=== PATIENT | male | born 1945 | race Two or more races ===

== ENCOUNTER 2016-07-11 13:11 | Emergency (ER) | payer MEDICAID ==
[2016-07-11] MEDS ORDERED: IOPAMIDOL 300 (61%) 150 ML VIAL IV ONE (13:12)
[2016-07-11 14:44] LABS: ABSOLUTE NEUTROPHIL COUNT 17.5 K/mm3 (1.8-7.7); BASO % 0.1 % (0.2-1.0); EOS % 0.1 % (0.9-2.9); HEMATOCRIT 20.3 % (32.0-52.0); IMM NEUT # 0.5 K/mm3 (0-0.2); IMM NEUT% 2.3 % (0-1); LYMPH % 4.8 % (15-45); MEAN CELL VOLUME 77.5 fl (80.0-94.0); MEAN CORPUSCULAR HEMOGLOBIN 22.9 pg (27.0-31.0); MEAN CORPUSCULAR HGB CONC 29.6 g/dl (33.0-37.0); MEAN PLATELET VOLUME 9.3 fl (7.4-10.4); MONO # 1.5 (0.0-0.8); MONO % 7.3 % (4-12); NEUT % 85.4 % (43-75); PLATELET COUNT 512 K/mm3 (130-400); RED CELL DISTRIBUTION WIDTH 17.8 % (11.5-14.5)
[2016-07-11 15:27] LABS: ALB/GLOB RATIO 0.6 (>1.0); CALCIUM 7.3 mg/dL (8.6-10.3)
[2016-07-11] MEDS ORDERED: SODIUM CHLORIDE 0.9% 1,000 ML ONE (15:50)
[2016-07-11] MEDS ORDERED: MORPHINE SULFATE 4 MG/ML SYRINGE ONE (15:50)
[2016-07-11] MEDS ORDERED: CLINDAMYCIN 900 MG PREMIX 50 ML IV ONE (15:50)
[2016-07-11 15:55] LABS: ANISOCYTOSIS 2+; BAND 0 % (0-10); BASOPHIL 0 % (0-1); EOSINOPHIL 0 % (1-3); HYPOCHROMIA 2+; LYMPHOCYTE 7 % (15-45); MONOCYTE 4 % (4-12); NEUTROPHILS 89 % (43-75); NUCLEATED RED BLOOD CELL 4 /100 WBC; PLATELET ESTIMATE NORMAL (NORMAL); POIKILOCYTOSIS 2+; SPHEROCYTE 1+; TOTAL CELLS COUNTED 100
[2016-07-11 15:56] LABS: TARGET CELLS 1+
--- NOTE | 2016-07-11 17:28 | CT ---
CHEST W/ CON, ABD/PELVIS W/ CON COMPARISON: CT of the lower extremities. 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 Technique: Intravenous injection 125 mL Isovue 300 and. Using a [employer] Aquilion [address] scanner, images were obtained through the thorax, abdomen, and pelvis. An automated dose reduction technique was used to minimize patient radiation dose. Dose information: CTDIvol (mGy): 6.20 DLP(mGycm): 598.30 FINDINGS (thorax with contrast): Lungs: Normal. Trachea and bronchi: Normal. Heart and vessels: Normal. Mediastinum and nohemi: Normal. Esophagus: Normal. Pleura and pericardium: Normal. Chest wall and bones: Normal. FINDINGS (abdomen and pelvis with contrast): Liver: In the right lobe, there are 2 nonenhancing structures, 12.5 mm and 4.9 mm. Gallbladder: To moderate calcification at the posterior wall the fundus. Bile ducts: Normal. Pancreas: Normal. Spleen: Normal. Adrenal glands: Normal. Kidneys: Simple cysts in the left kidney. Ureters: Normal. Urinary bladder: Normal. Prostate gland and seminal vesicles:: Normal Blood vessels: Normal. Lymph nodes: Normal. Stomach: Normal. Duodenum: Normal. Small intestine: Normal. Appendix: Normal. Colon: Normal. Abdominal wall and supporting musculature: Normal. Bones: Degenerative changes in spine. No lytic or blastic lesions. IMPRESSION: 1. No evidence of metastatic disease to the chest, abdomen, and pelvis. 2. The liver, there are 2 cysts in the right lobe. In the left kidney, there are several cysts. The report was sent to the emergency department electronic medical record system 07/11/2016 at 17:29
--- NOTE | 2016-07-11 17:30 | CT ---
LOWER EXT W/ CON LT COMPARISON: None. HISTORY: Large mass of the proximal left leg TECHNIQUE: Intravenous injection 125 mL of Isovue-300. Images of the the lower extremities from the hips to the distal femur. were obtained with a [employer] Aquilion [address] scanner. No intravenous contrast. An automated dose reduction technique was used to minimize patient radiation dose. Dose information: CTDIvol (mGy): 6.20 DLP(mGycm): 598.30 FINDINGS: Bones: Normal Joints: Normal Soft tissues: In the proximal medial left thigh, exophytic mass, up to 18 cm transverse by 9 cm in height, extending from the groin to the inferior medial left thigh 29 cm. There is simple or tumor thrombus in the left greater saphenous vein within the thigh. Multiple fingers of mass extending inferiorly encasing the gracilis and sartorius muscles. IMPRESSION: 1. 29 x 18 x 9 cm mass of the left thigh described in detail above. Thrombus or tumor thrombus in the left greater saphenous vein. Encasement of adjacent muscles and vessels. Extends from the left groin to the distal medial left thigh. It most likely extends more inferior in the left by the on the [id number] of the study. The report was sent to the emergency department electronic medical record system, 07/11/2016 at 17:29
== END 2016-07-11 18:29 | disposition short-term general hospital (02) ==
LOC: ED 13:11
DX: R22.42 Localized swelling, mass and lump, left lower limb (principal); L08.9 Local infection of the skin and subcutaneous tissue, unspecified; D64.9 Anemia, unspecified
CPT/HCPCS: 83605; 85025; 82550; 87040; 87070; 80053; 74177; 73701; 71260; 86920; 86922; 86921; 86901; 86850 ×3; 96375; 99285; 36430; 96361 ×2; 96365; 99291; J2270; J7030; Q9967; P9016